=== PATIENT | female | born 1940 | race Caucasian/White ===

== ENCOUNTER 2019-03-16 01:28 | Inpatient (IN) | payer OTHER, MEDICAID ==
[~2019-03-16] VITALS: Ht 152.4 cm; Wt 88.5 kg
[2019-03-16] VITALS (8 sets, daily range): BP systolic 103–215; BP diastolic 40–86
--- NOTE | 2019-03-16 01:28 | NUR ---
PT BIBA ALS FROM HOME C/O SOB. PT PRESENTS WITH DEEP, LABORED BREATHING. ACCESSORY MUSCLE USE. PT PLACED ON BIPAP EN ROUTE. PT POSITIONED IN FOWLERS POSITION. O2 SAT 100 ON 50% O2 ON BIPAP. PT CALM AND PLEASANT. WHEN REMOVED FROM BIPAP PT PRESENTS WITH LABORED BREATHING. PT REPLACED ON BIPAP BY RESPIRATORY. VSS. MEDHX: DM, ASTHMA, COPD, CHF ALLERGIES: PENICILLIN, IODINE, SHELLFISH
--- NOTE | 2019-03-16 01:28 | NUR ---
DR CONLEY AT BEDSIDE EXAMINING PT
--- NOTE | 2019-03-16 01:29 | NUR ---
PT PLACED ON THE MONITOR. VSS. WILL CONTINUE TO MONITOR.
[2019-03-16] MEDS ORDERED: ALBUTEROL SULFATE/IPRATROPIU 3 ML SOL IH ONE (01:35)
[2019-03-16] MEDS ORDERED: methylPREDNISolone SS 125 MG in WATER STERILE 2 ML IV ONE (01:35)
[2019-03-16] MEDS ORDERED: WATER STERILE 10 ML MC ONE (01:40)
[2019-03-16] MEDS ORDERED: methylPREDNISolone SS 125 MG/2 ML VIAL ONE (01:40)
[2019-03-16 01:45] LABS: BASOPHILS # (AUTO) 0.1 K/uL (0.00-0.22); BASOPHILS % (AUTO) 0.8 % (0.0-2.0); EOSINOPHILS # (AUTO) 0.3 K/uL (0-0.4); EOSINOPHILS % (AUTO) 2.8 % (0.0-4.0); HEMATOCRIT 35.5 % (36-48); HEMOGLOBIN 11.2 g/dL (12.0-16.0); LYMPHOCYTES # (AUTO) 1.5 K/uL (2.5-16.5); LYMPHOCYTES % (AUTO) 16.1 % (20.5-51.1); MEAN CORPUSCULAR HEMOGLOBIN 28 pg (27-31); MEAN CORPUSCULAR HGB CONC 32 g/dL (33-37); MEAN CORPUSCULAR VOLUME 88.5 fL (80-94); MONOCYTES # (AUTO) 0.4 K/uL (0.8-1.0); MONOCYTES % (AUTO) 4.1 % (1.7-9.3); NEUTROPHILS # (AUTO) 7.1 K/uL (1.8-7.7); NEUTROPHILS % (AUTO) 76.2 % (42.2-75.2); PLATELET COUNT (AUTO) 256 K/uL (140-450); RED BLOOD CELL COUNT(AUTO) 4.01 MIL/uL (4.20-5.40); WHITE BLOOD COUNT (AUTO) 9.3 K/uL (4.8-10.8)
--- NOTE | 2019-03-16 01:47 | NUR ---
EKG PERFORMED AT BEDSIDE
--- NOTE | 2019-03-16 01:52 | NUR ---
XRAY AT PT BEDSIDE
--- NOTE | 2019-03-16 01:56 | NUR ---
PT PLACED ON BEDPAN AT THIS TIME.
--- NOTE | 2019-03-16 02:01 | NUR ---
URINE SPECIMEN COLLECTED FROM PT.
[2019-03-16 02:03] LABS: ALBUMIN 3.4 g/dL (3.4-5.0); ANION GAP 14.5 (8-16); ASPARTATE AMINOTRANSFERASE 17 U/L (15-37); CARBON DIOXIDE 24.8 mmol/L (21-32); CHLORIDE 110 mmol/L (98-107); CREATININE 1.5 mg/dL (0.6-1.3); GLUCOSE 221 mg/dL (74-106); POTASSIUM 4.3 mmol/L (3.5-5.1); SODIUM SERUM 145 mmol/L (136-145); TOTAL BILIRUBIN 0.3 mg/dL (0.0-1.0); UREA NITROGEN, BLOOD 36 mg/dL (7-18)
[2019-03-16] MEDS ORDERED: MORPHINE SULFATE 2 MG/ML SYR IVP ONE (02:15)
[2019-03-16] MEDS ORDERED: NITROGLYCERIN 0.4 MG TAB SL ONE (02:15)
[2019-03-16] MEDS ORDERED: FUROSEMIDE 40 MG/4 ML VIAL IVP SCH (02:50)
[2019-03-16] MEDS ORDERED: LORazepam 2 MG/ML VIAL IVP ONE (02:50)
--- NOTE | 2019-03-16 02:56 | NUR ---
16 AMHARIC MAN CATHETER PLACED. PT TOLERATED PROCEDURE WELL.
[2019-03-16 02:57] LABS: APPEARANCE,URINE CLEAR (CLEAR); BILIRUBIN,URINE NEGATIVE (NEGATIVE); BLOOD, URINE TRACE-I (NEGATIVE); COLOR,URINE YELLOW (YELLOW); LEUKOCYTE ESTERASE ,URINE NEGATIVE (NEGATIVE); NITRITE, URINE NEGATIVE (NEGATIVE); UGLUCOSE 2+ (NEGATIVE)
--- NOTE | 2019-03-16 03:09 | NUR ---
PT DENIES CHEST PAIN AT THIS TIME. PT REMAINS ON BIPAP 50% O2. VSS. WILL CONTINUE TO MONITOR.
[2019-03-16] MEDS ORDERED: LINA5TAB PO (03:37)
[2019-03-16] MEDS ORDERED: CLOP75TA55 PO (03:38)
[2019-03-16] MEDS ORDERED: METO50TE2 PO (03:39)
[2019-03-16] MEDS ORDERED: LYR75 PO (03:41)
[2019-03-16] MEDS ORDERED: PANT40EC PO (03:41)
[2019-03-16] MEDS ORDERED: HYDR100T79 PO (03:42)
[2019-03-16] MEDS ORDERED: ATOR40TA PO (03:43)
[2019-03-16] MEDS ORDERED: CHOL100013 PO (03:44)
[2019-03-16] MEDS ORDERED: NIFE60TE5 PO (03:45)
--- NOTE | 2019-03-16 03:46 | NUR ---
PT RESTING IN BED, BED POSITIONED IN FOWLERS POSITION FOR COMFORT, PT REMAINS ON BIPAP. O2SAT 100%. VSS. WILL CONTINUE TO MONITOR.
[2019-03-16 04:14] LABS: WBC,URINE 0-5 /HPF (0-5)
--- NOTE | 2019-03-16 04:14 | NUR ---
PTS SON AND DAUGHTER LEFT PHONE NUMBER, WOULD LIKE CALL WHEN PT GETS ADMITTED. ALMITA (SON): PA (DAUGHTER):
--- NOTE | 2019-03-16 05:15 | NUR ---
PT ARRIVED IN THE UNIT VIA GURNEY FROM ER ACCOMPANIED BY EMT AND RN. PT AWAKE AND ALERT. ABLE TO MAKE NEEDS KNOWN. DENIES PAIN. PERRL. PT ABLE TO ANSWER QUESTIONS. LUNG SOUNDS CLEAR. RESPIRATIONS EVEN AND UNLABORED. CHEST RISE SYMMETRIC. PT ON BIPAP. OXYGEN SATURATION WNL. S1+S2 HEARD. PULSES ARE PALPABLE IN ALL EXTREMITIES. ABDOMEN ROUND, SOFT AND NONDISTENDED. MAN CATHETER IN PLACE. CURRENTLY NO URINE OUTPUT D/T MAN CATHETER WAS JUST CHANGED PRIOR TO COMING IN THE UNIT. PT HAS PERIPHERAL IV ACCESS ON LEFT AC 20G. SKIN INTACT. SKIN IS WARM AND DRY. MRSA SPECIMEN COLLECTED. HOB AT 30 DEGREES. ALL SAFETY PRECAUTIONS ARE IN PLACE. WILL CONTINUE TO MONITOR PT.
--- NOTE | 2019-03-16 05:19 | NUR ---
Patient will be admitted to care of DR SZYMANSKI. Admited to ICU. Will go to room 5. Belongings list completed. Report to JACQUELINE BOJORQUEZ.
--- NOTE | 2019-03-16 05:30 | NUR ---
PT HAS CELLPHONE WITH BLACK AND PURPLE CASE AND WIRE TWISTING MACHINE OPERATOR AT BEDSIDE. NOTED WITH A KNOWLES COLORED WATCH AND A WOODEN BRACELET. PT WANTED HER BELONGINGS AT BEDSIDE.
--- NOTE | 2019-03-16 07:30 | NUR ---
RECEIVED BEDSIDE REPORT FROM PRE K SPECIAL EDUCATION TEACHER RN. AFEBRILE. DENIES PAIN. PT IS AAOX4. ABLE TO MAKE NEEDS KNOWN. NORMAL SINUS RHYTHM ON MONITOR. S1 S2 HEARD. PULSES PALPABLE TO ALL EXTREMITIES. NO EDEMA NOTED. PT IS ON BIPAP 12/6, FIO2 50%, BREATHING EVEN AND UNLABORED. LUNGS SOUND CLEAR BILATERALLY. PERIPHERAL IV G20 TO LEFT AC PATENT, INTACT W/ GOOD BLOOD RETURN, SALINE LOCKED. ABDOMEN ROUND, SOFT, NONTENDER W/ ACTIVE BOWEL SOUNDS. SKIN IS INTACT, DRY AND WARM TO TOUCH. MAN CATH IN PLACE DRAINING CLEAR YELLOW URINE TO GRAVITY. HOB 30 DEGREES, BED IN LOWEST POSITION LOCKED. CALL LIGHT WITHIN REACH. NO SIGNS OF DISTRESS NOTED. WILL CONTINUE TO MONITOR.
[2019-03-16 08:15] LABS: BARBITURATE, URINE NEG. ng/ml (NEG <=200); BENZODIAZEPINE, URINE NEG. ng/mL (NEG <=200); CANNABINOID, URINE NEG. ng/mL (NEG <=50); COCAINE, URINE NEG. ng/mL (NEG <=300); OPIATE, URINE NEG. ng/mL (NEG <=2000); PHENCYCLIDINE SCREEN,URINE NEG. ng/mL (NEG <=25)
--- NOTE | 2019-03-16 08:20 | NUR ---
SPOKE WITH DR. SZYMANSKI, MADE AWARE THAT PT IS HIS NEW ADMIT FROM ER. ORDERS RECEIVED. PER DR. SZYMANSKI, WILL RECONCILE THE REST OF MEDS WHEN HE COMES AND SEES PT.
--- NOTE | 2019-03-16 09:13 | NUR ---
PT SEEN AND EXAMINED BY DR. SZYMANSKI. WILL FOLLOW UP ON ORDERS.
--- NOTE | 2019-03-16 09:15 | NUR ---
PER DR. NICK SZYMANSKI OK TO REMOVE BIPAP TO MASK KEEP SATURATION GREATER THAN 90%
[2019-03-16] MEDS: FUROSEMIDE 40 MG/4 ML VIAL IVP SCH ×2 (09:32→20:52)
--- NOTE | 2019-03-16 09:51 | NUR ---
INFORMED POLYSOMNOGRAPHIC TECH THAT PT IS TELEMETRY STATUS NOW.
--- NOTE | 2019-03-16 10:05 | NUR ---
PATIENT HAS BEEN SCREENED AND CATEGORIZED MODERATE NUTRITION RISK. PATIENT WILL BE SEEN WITHIN 3-5 DAYS OF ADMISSION. 03/18/19-03/20/[address]
--- NOTE | 2019-03-16 10:18 | NUR ---
PT SEEN AND EXAMINED BY DR. PONCE. WILL FOLLOW UP ON ORDERS.
--- NOTE | 2019-03-16 11:20 | NUR ---
RECEIVED REPORT FROM ICU NURSE TO 121B, VIA BED, PATIENT IN STABLE CONDITION, VITAL SIGNS STABLE. PATIENT ON ROOM AIR, ON HER CELL PHONE. WILL CONTINUE TO MONITOR.
--- NOTE | 2019-03-16 11:20 | NUR ---
PT TRANSFERRED TO [facility] 121B. PT IS IN STABLE CONDITION.
--- NOTE | 2019-03-16 11:21 | NUR ---
REPORT GIVEN TO JACQUELINE DORADO.
[2019-03-16] MEDS: BLOOD GLUCOSE MONITORING 1 DEV DEV FS SCH ×3 (11:30→20:51)
[2019-03-16] MEDS: ALBUTEROL 0.083% 2.5 MG/3 ML NEBU INH SCH ×4 (11:46→22:58)
[2019-03-16] MEDS: IPRATROPIUM 0.02% 0.5 MG/2.5 ML NEBU INH SCH ×4 (11:46→22:58)
[2019-03-16] MEDS: INSULIN LISPRO SLIDING SCALE 100 UNITS/ML VIAL SUBQ PRN ×3 (12:31→20:50)
--- NOTE | 2019-03-16 14:20 | NUR ---
PER DR SZYMANSKI TO PUT ORDER FOR MORPHINE 2MG IVP AND ATIVAN 0.5MG PRN FOR ANXIETY, ORDERED PUT INTO SYSTEM. PER PATIENT DOES NOT LIKE MORPHINE STATES IT MAKES HER "GO CRAZY" PLUS HAVE DELUSIONS, MORPHINE WAS DC'D AND ADDED TO ALLERGY: ADVERSE REACTION. PATIENT STATES DECREASE OF CHEST PRESSURE WITH REPOSITIONING AND O2. WILL CONTINUE TO MONITOR, ATIVAN PENDING PHARMACY VERIFICATION.
--- NOTE | 2019-03-16 16:15 | NUR ---
AT THE BEDSIDE WITH PATIENT C/O CHEST PRESSURE, PATIENT HAS HX: ASTHMA, COPD, DM2, CHF, BMP: 573 PATIENT WAS ASSISTED IN A HIGH FOWLERS POSITION, 2L O2 VIA NC GIVEN. COACHED PATIENT THROUGH DEEP BREATHING, DR SZYMANSKI PAGED FOR PAIN MEDICATIONS.
[2019-03-16] MEDS ORDERED: MORPHINE SULFATE 2 MG/ML SYR IVP PRN (16:30)
--- NOTE | 2019-03-16 16:58 | NUR ---
PT ASKED ME TO CONTACT HER PCP (DR. REARDON) OFFICE TEL# [phone] TO INFORM THEM THAT SHE IS BEING ADMITTED HERE IN [facility]. THE [facility] IS NOW CLOSED, VOICEMAIL MESSAGE LEFT. PT NOTIFIED. VERBALIZED UNDERSTANDING.
--- NOTE | 2019-03-16 17:30 | NUR ---
PATIENT IN BED, WATCHING TV WITH DINNER AT THE BEDSIDE,. PATIENT TALKING ON PHONE WITH SON. NO RESP DISTRESS NOTED AT THIS TIME. WILL CONTINUE TO MONITOR.
[2019-03-16] MEDS: LORazepam 2 MG/ML VIAL IVP PRN ×2 (17:37→22:30)
--- NOTE | 2019-03-16 18:40 | NUR ---
PATIENT SITTING UP IN BED, WATCHING TV, NO RESP DISTRESS NOTED. WILL CONTINUE TO MONITOR
--- NOTE | 2019-03-16 19:09 | NUR ---
ENDORSED CARE TO POSTAL INSPECTOR NURSE, BEDSIDE REPORT GIVEN USING SBAR REPORT PATIENT IN STABLE CONDITION.
--- NOTE | 2019-03-16 19:10 | NUR ---
ENDORSED CARE TO DIAGNOSTIC IMAGING MANAGER NURSE, BEDSIDE REPORT GIVEN USING SBAR REPORT PATIENT IN STABLE CONDITION.
--- NOTE | 2019-03-16 19:15 | NUR ---
RECEIVED BEDSIDE REPORT FROM AVE RN DAYSHIFT NURSE AT BEDSIDE FOR CONTINUITY OF CARE, PT INSTABLE CONDITION.
--- NOTE | 2019-03-16 20:00 | NUR ---
PT IN BED SHE IS AOX4 WITH IV SITE ON LEFT F/A 22G INTACT AND SALINE LOCKED. PT ALSO HAS N/C RUNNING AT 2 LITERS. V/S FOLLOWS: T 98.2 P 85 R 18 B/P 165/66 02 98% WITH 2 LITERS. PT LUNG SOUNDS DIMINISHED AND BOWEL SOUNDS HYPOACTIVE. ALL FALLS PROTOCOL IN PLACE AND FAMILY AT BEDSIDE.
--- NOTE | 2019-03-16 20:08 | NUR ---
RECEIVED PT ON 2L NC WITH SP02 95%. BREATH SOUNDS WERE COARSE. PT IN NO RESPIRATORY DISTRESS. TX GIVEN ORDERED. WILL CONTINUE TO MONITOR PT
[2019-03-16] MEDS: PREGABALIN 25 MG CAP PO SCH (20:54)
--- NOTE | 2019-03-16 21:00 | NUR ---
PT GIVEN ORDERED LASIX IV 40MG AND LYRICA 75MG. EDUCATION REGARDING MEDICATION PROVIDED AT BEDSIDE. WILL MONITOR BP DUE TO HTN AND PT GIVEN IVP LASIX. PT HAS MAN CATHETER IN PLACE AND DRAINING LIGHT SEAN URINE. PT HAS NO C/O OF PAIN OR DISTRESS ALL REQUESTED NEEDS ATTENDED AND CALL ALFONSO IN REACH.
--- NOTE | 2019-03-16 21:30 | NUR ---
PT FAMILY BROUGHT IN [facility]. IT WAS ADDED TO BELONGINGS LIST. PT FAMILY ALSO REQUEST THAT PT DO NOT RECEIVE HEAVY NARCOTIC DUE TO PT REACTION. FAMILY REQUEST PT TO RECEIVE TRAMADOL 50MG Q6PO/PRN WHICH IS WHAT SHE TAKES AT HOME. CALLED FOR THE ORDER.
--- NOTE | 2019-03-16 22:15 | NUR ---
SPOKE WITH MD DIETZ, WHO APPROVED THE PRN TRAMADOL ORDER REQUESTED BY FAMILY. RETAKE OF PT B/P IS 146/46. ALL FALLS PRECAUTIONS IN PLACE AND CALL ALFONSO IN REACH.
--- NOTE | 2019-03-16 23:00 | NUR ---
PT C/O ANXIETY AND WAS GIVEN PRN ATIVAN ORDERED. ALL FALLS PRECAUTIONS IN PLACE AND CALL ALFONSO IN REACH.
[2019-03-17] VITALS: BP 144/62
--- NOTE | 2019-03-17 00:30 | NUR ---
PT WAS TURNED AND REPOSITIONED IN BED. V/S FOLLOWS: T 97.4 P 82 R 18 B/P 144/62 02 98% ON 2 LITERS VIA N/C. ALL FALLS PRECAUTIONS IN PLACE AND CALL ALFONSO IN REACH.
[2019-03-17] MEDS: ALBUTEROL SULFATE/IPRATROPIU 3 ML SOL IH SCH ×6 (03:19→22:13)
--- NOTE | 2019-03-17 03:30 | NUR ---
PT RECEIVED NEB TREATMENT AT BEDSIDE, NO S/S OF PAIN OR DISTRESS NOTED. MAN CATHETER IN PLACE AND DRAINING YELLOW URINE. N/C IN PLACE AND PT PUT ON 2 LITERS SUPPLEMENTAL O2. ALL FALLS PROTOCOL IN PLACE.
[2019-03-17 04:00] VITALS: BP 151/67
--- NOTE | 2019-03-17 05:21 | NUR ---
LABS DRAWN AT BEDSIDE.
[2019-03-17] MEDS: BLOOD GLUCOSE MONITORING 1 DEV DEV FS SCH ×4 (06:11→21:00)
[2019-03-17] MEDS ORDERED: PANTOPRAZOLE 40 MG TABEC PO ONE (06:21)
[2019-03-17] MEDS: INSULIN LISPRO SLIDING SCALE 100 UNITS/ML VIAL SUBQ PRN ×4 (06:23→22:54)
[2019-03-17] MEDS: PANTOPRAZOLE 40 MG TABEC PO SCH (06:27)
--- NOTE | 2019-03-17 06:30 | NUR ---
PT IN BED AWAKE AND ALERT WITH 2 LITERS VIA N/C, SHE HAS NO C/O VOICED AT THIS TIME. PT FINGERSTICK IS 161, PT GIVEN 2 UNITS OF HUMALOG COVERAGE. PT ALSO GIVEN ORDERED PROTONIX. PT SITTING UP IN BED, MD DIETZ HAD A QUICK VISIT AT BEDSIDE. PT HAS NO S/S OF PAIN OR DISTRESS NOTED. PT IN STABLE CONDITION, WILL ENDORSE CARE AT BEDSIDE TO AM SHIFT. ALL FALLS PRECAUTIONS IN PLACE.
[2019-03-17 06:57] LABS: BASOPHILS # (AUTO) 0.1 K/uL (0.00-0.22); BASOPHILS % (AUTO) 0.9 % (0.0-2.0); EOSINOPHILS % (AUTO) 0.6 % (0.0-4.0); HEMATOCRIT 29.7 % (36-48); HEMOGLOBIN 9.4 g/dL (12.0-16.0); LYMPHOCYTES # (AUTO) 1.9 K/uL (2.5-16.5); LYMPHOCYTES % (AUTO) 23.2 % (20.5-51.1); MEAN CORPUSCULAR HEMOGLOBIN 28 pg (27-31); MEAN CORPUSCULAR HGB CONC 32 g/dL (33-37); MEAN CORPUSCULAR VOLUME 88.8 fL (80-94); MONOCYTES # (AUTO) 0.7 K/uL (0.8-1.0); MONOCYTES % (AUTO) 8.2 % (1.7-9.3); NEUTROPHILS # (AUTO) 5.6 K/uL (1.8-7.7); NEUTROPHILS % (AUTO) 67.1 % (42.2-75.2); PLATELET COUNT (AUTO) 209 K/uL (140-450); RED BLOOD CELL COUNT(AUTO) 3.35 MIL/uL (4.20-5.40); RED CELL DISTRIBUTION WIDTH 16.2 % (11.6-13.7); WHITE BLOOD COUNT (AUTO) 8.3 K/uL (4.8-10.8)
--- NOTE | 2019-03-17 07:28 | NUR ---
CARE ENDORSED TO IMELDA RN DAYSHIFT NURSE AT BEDSIDE FOR CONTINUITY OF CARE, PT IN STABLE CONDITION.
--- NOTE | 2019-03-17 07:29 | NUR ---
RECEIVED BEDSIDE REPORT FROM SENIOR ELECTRONICS TECHNICIAN NURSE. PATIENT IS AWAKE, ALERT AND ORIENTEDX4. NO SIGNS OF DISTRESS ON 2L NC. SKIN IS INTACT. R FA 22G SL. CLEAN, DRY AND INTACT. MAN CATH. PATIENT IS CONTINENT. AMBULATE W ASSIST. FALL RISK PROTOCOL IN PLACE. ABLE TO MAKE NEEDS KNOWN. BED IN LOW POSITION. CALL LIGHT WITHIN REACH
[2019-03-17 07:31] LABS: ANION GAP 14.6 (8-16); ASPARTATE AMINOTRANSFERASE 10 U/L (15-37); CARBON DIOXIDE 25.9 mmol/L (21-32); CHLORIDE 109 mmol/L (98-107); CREATININE 2.2 mg/dL (0.6-1.3); GLUCOSE 153 mg/dL (74-106); POTASSIUM 4.5 mmol/L (3.5-5.1); SODIUM SERUM 145 mmol/L (136-145); TOTAL BILIRUBIN 0.3 mg/dL (0.0-1.0); UREA NITROGEN, BLOOD 57 mg/dL (7-18)
[2019-03-17 08:00] VITALS: BP 158/56
[2019-03-17] MEDS: ATORVASTATIN 20 MG TAB PO SCH (09:17)
[2019-03-17] MEDS: PREGABALIN 25 MG CAP PO SCH ×2 (09:17→22:48)
[2019-03-17] MEDS: NIFEdipine 60 MG TABER PO SCH (09:18)
[2019-03-17] MEDS: METOPROLOL SUCCINATE 50 MG TABER PO SCH (09:18)
[2019-03-17] MEDS: CLOPIDOGREL 75 MG TAB PO SCH (09:18)
[2019-03-17] MEDS: FUROSEMIDE 40 MG/4 ML VIAL IVP SCH (09:20)
--- NOTE | 2019-03-17 09:24 | NUR ---
ADMINISTERED MEDS. EDUCATED ON SIDE EFFECTS. PATIENT TOLERATED WELL. NO SIGNS OF DISTRESS. WILL CONTINUE TO MONITOR THE PATIENT.
--- NOTE | 2019-03-17 10:02 | NUR ---
STAT ABG COMPLETED PRESSURE APPLIED AT PUNCTURE SITE NO HEMATOMA
[2019-03-17] MEDS: LORazepam 2 MG/ML VIAL IVP PRN ×2 (10:10→23:19)
[2019-03-17] MEDS: NITROGLYCERIN 0.4 MG TAB SL PRN (10:10)
--- NOTE | 2019-03-17 10:10 | NUR ---
EKG DONE, TROPONIN LAB DONE. ABG LABS DONE. ADMINISTERED NITRO FOR PRN CHEST PAIN. VITALS BEFORE ARE FOLLOWS B/P 190/83 HR 109. WILL RECHECK VITALS AND CHEST PAIN ASSESSMENT.
--- NOTE | 2019-03-17 10:14 | NUR ---
CALLED MIGUEL/JACQUELINE [id number] REVIEWED ABG SAMPLE REPORT
--- NOTE | 2019-03-17 10:15 | NUR ---
PATIENT SLEEPING. NO DISTRESS AT THIS TIME. B/P 124/73 HR 108. PATIENT IS EASILY AROUSABLE. WILL CONTINUE TO MONITOR THE PATIENT.
--- NOTE | 2019-03-17 11:39 | NUR ---
DR WARE IN TO SEE THE PATIENT. PATIENT IN NO DISTRESS
[2019-03-17 12:00] VITALS: BP 128/67
--- NOTE | 2019-03-17 12:30 | NUR ---
PATIENT IS AWAKE, NO SIGNS OF DISTRESS. EATING AT THIS TIME. ADMINISTERED 6 UNITS HUMALOG. EDUCATED ON MED. PATIENT TOLERATED WELL. WILL CONTINUE TO MONITOR
--- NOTE | 2019-03-17 14:46 | NUR ---
PATIENT IS SLEEPING. NO SIGNS OF DISTRESS. WILL CONTINUE TO MONITOR THE PATIENT.
[2019-03-17 16:00] VITALS: BP 126/65
--- NOTE | 2019-03-17 16:00 | NUR ---
PATIENT IN NO DISTRESS. WILL CONTINUE TO MONITOR THE PATIENT
[2019-03-17] MEDS ORDERED: hePARIN / DEXT 5% PREMIX 250 ML IV SCH (16:55)
[2019-03-17] MEDS ORDERED: HEPARIN PER PHARMACY MC PRN ×2 (16:55)
--- NOTE | 2019-03-17 17:40 | NUR ---
ADMINISTERED JOHANNA ASPIRIN. EDUCATED ON MED. PATIENT SAID SHE HAS ULCERS AND THAT IS WHY SHE DOESNT TAKE ASPIRIN. I WILL ENDORSE TO CORPORATE PHYSICAL SECURITY SUPERVISOR NURSE TO ENDORSE TO DR WARE IN THE MORNING IF SHE SHOULD CONTINUE ASPIRIN DAILY OR STOP.
[2019-03-17] MEDS ORDERED: ASPIRIN 325 MG TAB PO SCH (18:00)
[2019-03-17] MEDS: hePARIN / DEXT 5% PREMIX 250 ML IV SCH (19:04)
--- NOTE | 2019-03-17 19:15 | NUR ---
RECEIVED REPORT FROM IMELDA RN DAYSHIFT NURSE AT BEDSIDE FOR CONTINUITY OF CARE, PT IN STABLE CONDITION.
--- NOTE | 2019-03-17 19:35 | NUR ---
gave bedside report to overnight cashier nurse. patient endorsed in stable condition. told overnight cashier nurse to endorse to AM nurse if patients aspirin should continue or stop d/t gi ulcers
--- NOTE | 2019-03-17 19:51 | NUR ---
RECEIVED PT ON 2L NC WITH SP02 97% AND COARSE BREATH SOUNDS. PT IN NO RESPIRATORY DISTRESS AT THIS TIME. FAMILY AT BEDSIDE. TX GIVEN ORDERED WITH NO ADVERSE REACTION. WILL CONTINUE TO MONITOR PT.
[2019-03-17 20:00] VITALS: BP 127/48
--- NOTE | 2019-03-17 20:00 | NUR ---
PT IN BED NO S/S OF PAIN OR DISTRESS NOTED. HEPARIN GTT RUNNING ORDERED, NO S/S OF BLEEDING OR OTHER ADVERSE EFFECTS. IV SITE INTACT AND ASYMPTOMATIC. PT OLD IV SITE REMOVED. MAN CATHETER IN PLACE AND DRAINING SEAN URINE. N/C IN PLACE AND RUNNING AT 2L. V/S FOLLOWS: T 97.6 P 74 R 18 B/P 127/48 02 97% ON ROOM AIR.ALL FALLS PRECAUTIONS IN PLACE AND CALL ALFONSO IN REACH.
--- NOTE | 2019-03-17 21:00 | NUR ---
DAVID CUBAI AT BEDSIDE W PT AND UPDATING FAMILY VIA CELL PHONE.
--- NOTE | 2019-03-17 21:30 | NUR ---
PT GIVEN ALL SCHEDULED MEDS OF LYRICA AND CIPRO, EDUCATION REGARDING MEDICATION PROVIDED AT BEDSIDE INCLUDING COMMON SIDE EFFECTS. EDUCATION PROVIDED REGARDING DX AND CURRENT TREATMENTS AT BEDSIDE. ALL REQUESTED NEEDS ATTENDED. PT DECLINED TO BE TURNED AT THIS TIME. FINGERSTICK IS 213, PT GIVEN 4 UNITS OF HUMALOG COVERAGE. PER S/S.
--- NOTE | 2019-03-17 22:00 | NUR ---
MOVED PT TO ROOM 122, DUE TO 02 LEAK IN ROOM.
--- NOTE | 2019-03-17 22:27 | NUR ---
PT REFUSED CPAP
[2019-03-17] MEDS: CIPROFLOXACIN 250 MG TAB PO SCH (22:47)
--- NOTE | 2019-03-17 23:20 | NUR ---
PT C/O THAT MAN CATHETER IS HURTING HER WHEN SHE REPOSITIONS HERSELF AND IS REQUESTING MAN CATH BE CHANGED. 600MLS OF BLOODY URINE DRAINED FROM OLD MAN CATH. NEW MAN CATH PLACED 16 TAJIK X1 ATTEMPT PT TOLERATED PROCEDURE WELL. URINE DRAINED A LIGHT YELLOW. PT GIVEN ATIVAN FOR FEELINGS OF ANXIETY AND AGITATION. IV SITE INTACT HEPARIN GTT CONTINUES ORDERED AND ALL FALLS PRECAUTIONS IN PLACE.
[2019-03-18] VITALS: BP 135/47
--- NOTE | 2019-03-18 | NUR ---
PT IN BED RESTING WITH EYES CLOSED BUT AROUSABLE TO LIGHT TOUCH. ALL FALLS PRECAUTIONS IN PLACE. IV SITE ON LEFT F/A INTACT AND RUNNING HEPARIN ORDERED. V/S FOLLOWS: T 97.0 P 70 R 18 B/P 135/47 02 98% ON 2 LITERS VIA N/C. PT TURNED AND REPOSITIONED IN BED ALL REQUESTED NEEDS ATTENDED BY STAFF.
--- NOTE | 2019-03-18 01:03 | NUR ---
RECEIVED A CRITICAL LAB OF TROPONIN 0.126 FROM [facility] AT THE LAB, PAGED HIGHWAY ENGINEERING TEACHER MD DR. WATERMAN TO UPDATE HIM AND RECEIVE ANY NEW ORDERS.
--- NOTE | 2019-03-18 01:09 | NUR ---
LAB AT BEDSIDE TO DRAW PTT LEVEL FOR HEPARIN GTT.
--- NOTE | 2019-03-18 01:31 | NUR ---
RECEIVED CALL BACK FORM JEWEL BEARING GRINDER MD WATERMAN, HE WAS UPDATED ON PT LATEST TROPONIN LEVEL OF 0.126. NO NEW ORDERS NOTED.
--- NOTE | 2019-03-18 01:45 | NUR ---
LAB CALLED WITH CRITICAL VALUE OF PTT 55.2. LEVEL IS IN THERAPEUTIC RANGE FOR HEPARIN GTT. NO CHANGE IN ORDERS, NEXT PTT LAB DRAW WAS ORDERED AT 0705AM.
[2019-03-18] MEDS: hePARIN / DEXT 5% PREMIX 250 ML IV SCH ×4 (01:56→22:56)
[2019-03-18] MEDS: ALBUTEROL SULFATE/IPRATROPIU 3 ML SOL IH SCH ×6 (03:25→23:00)
[2019-03-18 04:00] VITALS: BP 137/56
--- NOTE | 2019-03-18 04:00 | NUR ---
PT WAS UP TO COMMODE WITH TRANSFER, SHE HAD A SMALL BM AND WAS ASSISTED BACK TO BED. V/S FOLLOWS T 97.0 P 68 R 18 B/P 137/56 02 98% WITH 2 LITERS VIA N/C. PT DAUGHTER BRENNAN WAS UPDATED WITH PATENT PERMISSION. CONTACT # [phone]. ALL FALLS PRECAUTIONS IN PLACE.
--- NOTE | 2019-03-18 06:00 | NUR ---
PT FINGERSTICK IS 213 PT GIVEN 4 UNITS OF HUMALOG COVERAGE PER S/S. SYNTHROID PO GIVEN. NO S/S OF PAIN OR DISTRESS NOTED.
[2019-03-18] MEDS: PANTOPRAZOLE 40 MG TABEC PO SCH (06:36)
[2019-03-18] MEDS: BLOOD GLUCOSE MONITORING 1 DEV DEV FS SCH ×4 (06:40→20:33)
[2019-03-18] MEDS: INSULIN LISPRO SLIDING SCALE 100 UNITS/ML VIAL SUBQ PRN ×3 (06:42→20:37)
[2019-03-18 06:45] LABS: ANION GAP 13.1 (8-16); CARBON DIOXIDE 26.3 mmol/L (21-32); CHLORIDE 107 mmol/L (98-107); CREATININE 2.3 mg/dL (0.6-1.3); GLUCOSE 232 mg/dL (74-106); POTASSIUM 4.4 mmol/L (3.5-5.1); SODIUM SERUM 142 mmol/L (136-145)
[2019-03-18 07:02] LABS: UREA NITROGEN, BLOOD 66 mg/dL (7-18)
--- NOTE | 2019-03-18 07:20 | NUR ---
CRITICAL VALUES FROM LAB RECEIVED BUN 66 AND CREATININE CLEARANCE 2.27. CRYOGENICS REPAIRER MIRELA CALLED, UPDATED NO NEW ORDERS NOTED. ENDORSED POC AT BEDSIDE TO ANDIE PHILLIPS DAYSHIFT NURSE FOR CONTINUITY OF CARE, PT IN STABLE CONDITION.
--- NOTE | 2019-03-18 07:20 | NUR ---
Received report from pm nurse More. Pt asleep in bed, arousable with auditory stimuli. Left forearm 22G IV intact & asymptomatic with ongoing heparin drip @ 750unit/h (7.5ml/h). Serna cath in place & draining reddish urine with small clots. Per pm nurse, clots were present after serna reinsertion during pm shift. Urine drainage bag changed for monitoring of hematuria. Pt shows no signs of distress. Call light within reach.
[2019-03-18 08:00] VITALS: BP 142/58
[2019-03-18] MEDS: ASPIRIN 81 MG TAB.CHEW PO SCH (08:30)
[2019-03-18] MEDS: PREGABALIN 25 MG CAP PO SCH ×2 (08:30→20:30)
[2019-03-18] MEDS: NIFEdipine 60 MG TABER PO SCH (08:31)
[2019-03-18] MEDS: CIPROFLOXACIN 250 MG TAB PO SCH ×2 (08:31→20:30)
[2019-03-18] MEDS: traMADol 50 MG TAB PO PRN ×3 (08:31→23:06)
[2019-03-18] MEDS: METOPROLOL SUCCINATE 50 MG TABER PO SCH (08:32)
[2019-03-18] MEDS: ATORVASTATIN 20 MG TAB PO SCH (08:32)
[2019-03-18] MEDS: CLOPIDOGREL 75 MG TAB PO SCH ×2 (08:32→08:45)
--- NOTE | 2019-03-18 08:45 | NUR ---
Plavix held d/t pt on heparin drip with ptt 79.9.
--- NOTE | 2019-03-18 10:30 | NUR ---
Son cath intact with reddish pelon urine in drainage bag, no clots noted. Pt denies any pain at this time. Dr Whitehead notified of hematuria, no new orders, states to f/u with olericulture teacher for cont heparin drip tx.
[2019-03-18 12:00] VITALS: BP 131/48
--- NOTE | 2019-03-18 12:15 | NUR ---
Noticed left forearm IV infiltrated, mild swelling with bruising. Heparin drip held, IV site discontinued, IV cannula intact. Started new IV access to right inner forearm 24G & resumed heparin drip @ 650ml/h. Pt akshat procedure well. Will cont to monitor. Addendum: 03/18/19 at 1828 by Tosha Alatorre RN Clarification of heparin drip rate: 650 unit/hr.
[2019-03-18 16:00] VITALS: BP_SYST 104; BP_SYST 111; BP_DIAS 41
--- NOTE | 2019-03-18 16:06 | NUR ---
Pt c/o 6/10 mid chest pain, non-radiating. Pt c/o tightness to chest. Pt also c/o anxiety. Tramadol administered. Unable to administer nitro tab & lorazepam d/t decreased BP. Encouraged pt to do breathing exercises, reassurance provided, TV turned on to redirect attention, repositioned for comfort. Right forearm IV intact & asymptomatic with ongoing heparin drip @ 750 unit/h. Pt's son Victoriano on speakerphone & updated of pt status per pt request. Will cont to monitor.
[2019-03-18] MEDS ORDERED: NITROGLYCERIN 2% 1 GM PKT TP ONE (16:56)
--- NOTE | 2019-03-18 17:00 | NUR ---
Dr. Carrasco came in to see pt, notified of hematuria & chest pain with decreased BP. Applied nitro-bid paste 1/2 inch to right chest per verbal order. Pt remains aaox4, cont to c/o anxiety. Reassurance provided by physician & staff. Will cont to monitor.
--- NOTE | 2019-03-18 17:30 | NUR ---
Per Dr. Carrasco, he will speak with Dr Whitehead re: recommendation for transfer to [facility] to check cardiac stent via angiogram.
--- NOTE | 2019-03-18 19:24 | NUR ---
RECEIVED BEDSIDE REPORT FROM DAY SHIFT NURSE. PATIENT IS AWAKE, ALERT, AND COOPERATIVE. RESPIRATION EVEN UNLABORED ON 2L NC O2. NO DISTRESS NOTED. SKIN IS WARM AND DRY. IV PATENT AND INTACT. HEPARIN DRIP RUNNING 750UNITS/HR. DENIES PAIN. PLAN OF CARE WAS DISCUSSED. ALL SAFETY MEASURES IN PLACE. BED IS AT LOW POSITION. CALL LIGHT WITHIN REACH AND VERBALIZES ITS USE. WILL CONTINUE TO MONITOR.
--- NOTE | 2019-03-18 19:59 | NUR ---
PATIENT REFUSED HHNTX. PATIENT AND FAMILY MEMBERS SAYS IT MAKES HER FEEL ANXIOUS. PATIENT WILL CALL IF SHE NEEDS A HHNTX
[2019-03-18 20:00] VITALS: BP 118/46
--- NOTE | 2019-03-18 20:01 | NUR ---
PATIENT REFUSES TO WEAR CPAP. PATIENT STATES IT MAKES HER FEEL CLAUSTROPHOBIC. PATIENT DOES NOT HAVE SOB. RR 14 HR 63 SATS 98% 2LNC AND BS ARE CLEAR
--- NOTE | 2019-03-18 20:02 | NUR ---
INITIAL ASSESSMENT DONE. VITALS WERE TAKEN. PATIENT ACCIDENTALLY PULLED HIS IV. NO ACTIVE BLEEDING SEEN. CANNULA TIP INTACT. INSERTED A NEW ONE TO THE LEFT FOREARM 22G. PATIENT IN STABLE CONDITION. WILL CONTINUE TO MONITOR. Addendum: 03/18/19 at 2004 by Vanessa Muller RN WRONG PATIENT
--- NOTE | 2019-03-18 20:07 | NUR ---
INITIAL ASSESSMENT DONE. NITRO-BID PASTE NOTED TO THE RIGHT UPPER CHEST. VITALS WERE TAKEN. MAN CATHETER DRAINING REDDISH SEAN URINE. NO CLOTS NOTED. PATIENT DENIES PAIN. LEFT ARM MILD SWELLING AND BRUISING NOTED. FAMILY AT BEDSIDE. WILL CONTINUE TO MONITOR.
--- NOTE | 2019-03-18 21:00 | NUR ---
ALL SCHEDULED MEDS WERE GIVEN PER ORDER. NO ASE NOTED. BLOOD SUGAR CHECKED. PATIENT BLOOD SUGAR 245. INSULIN GIVEN PER SLIDING SCALE ORDER. NO S/SX OF HYPO-HYPERGLYCEMIA. WILL CONTINUE TO MONITOR.
--- NOTE | 2019-03-18 21:39 | NUR ---
CHECKED PATIENT. PATIENT SLEEPING RESPIRATION EVEN UNLABORED ON 2L O2 NC. NO DISTRESS NOTED. WILL CONTINUE TO MONITOR.
--- NOTE | 2019-03-18 21:55 | NUR ---
PTT 96.7. PER PROTOCOL HOLD FOR 1 HOUR AND AFTER 1 HOUR REDUCE 200UNITS WHEN RESUME. WILL CONTINUE TO MONITOR.
--- NOTE | 2019-03-18 22:55 | NUR ---
RESUMED HEPARIN DRIP. HEPARIN DRIP RUNNING AT 5.50ML/HR. WILL CONTINUE TO MONITOR.
--- NOTE | 2019-03-18 23:07 | NUR ---
PATIENT COMPLAINED OF HEADACHE 5/10. PRN PAIN MEDICATION GIVEN PER ORDER. WILL CONTINUE TO MONITOR.
[2019-03-19] VITALS: BP 122/45
--- NOTE | 2019-03-19 | NUR ---
VITALS WERE TAKEN. PATIENT STILL COMPLAINS OF HEADACHE, BUT NO MORE CHEST PAIN. WILL PAGE GRIZZLYMAN
--- NOTE | 2019-03-19 00:12 | NUR ---
SPOKE WITH DR. BELL REGARDING PATIENT HEADACHE. DR. BELL ORDER TO REMOVED NITRO PATCH SINCE PATIENT IS NOT HAVING A CHEST PAIN. BLOOD PRESSURE 122/47. ALSO ORDERED TYLENOL 500MG Q6H PO PRN MILD PAIN. WILL CONTINUE TO MONITOR.
[2019-03-19] MEDS ORDERED: ACETAMINOPHEN EXTRA STRENGTH 500 MG TAB PO PRN (00:20)
--- NOTE | 2019-03-19 00:40 | NUR ---
PATIENT FELL ASLEEP. RESPIRATION EVEN UNLABORED ON 2L NC O2. NO DISTRESS NOTED. WILL CONTINUE TO MONITOR.
--- NOTE | 2019-03-19 02:21 | NUR ---
PATIENT WOKE UP FROM MILD HEADACHE. PRN TYLENOL GIVEN PER ORDER. WILL CONTINUE TO MONITOR.
[2019-03-19] MEDS: ALBUTEROL SULFATE/IPRATROPIU 3 ML SOL IH SCH ×6 (03:00→23:22)
[2019-03-19 04:00] VITALS: BP 140/49
--- NOTE | 2019-03-19 04:30 | NUR ---
VITALS WERE TAKEN PATIENT IN STABLE CONDITION. NO DISTRESS NOTED. WILL CONTINUE TO MONITOR.
--- NOTE | 2019-03-19 04:45 | NUR ---
PROVIDED MAN CATHETER CARE
[2019-03-19] MEDS: BLOOD GLUCOSE MONITORING 1 DEV DEV FS SCH ×4 (06:40→21:00)
[2019-03-19] MEDS: PANTOPRAZOLE 40 MG TABEC PO SCH (06:40)
[2019-03-19] MEDS: INSULIN LISPRO SLIDING SCALE 100 UNITS/ML VIAL SUBQ PRN ×4 (06:42→22:29)
[2019-03-19] MEDS: hePARIN / DEXT 5% PREMIX 250 ML IV SCH ×3 (06:45→16:29)
--- NOTE | 2019-03-19 06:46 | NUR ---
HEPARIN BAG DONE. HANG A NEW ONE. STILL RUNNING AT 5.50ML/HR. WILL CONTINUE TO MONITOR.
--- NOTE | 2019-03-19 07:10 | NUR ---
PTT 59.8. NO CHANGE IN HEPARIN DRIP. STILL RUNNING AT 5.50 ML/HR. NEXT PTT ORDER AT 1310. WILL CONTINUE TO MONITOR.
[2019-03-19 07:23] LABS: ANION GAP 11.5 (8-16); CARBON DIOXIDE 28.2 mmol/L (21-32); CHLORIDE 106 mmol/L (98-107); CREATININE 2.4 mg/dL (0.6-1.3); GLUCOSE 233 mg/dL (74-106); POTASSIUM 5.7 mmol/L (3.5-5.1); SODIUM SERUM 140 mmol/L (136-145)
--- NOTE | 2019-03-19 07:25 | NUR ---
RECEIVED BEDSIDE REPORT FROM GRAPPLE YARDER OPERATOR NURSE, PT IS AWAKE AND ALERT, ON 2L O2 NC, SKIN INTACT, IV SITE R FA 22 G, ON HEPARIN DRIP CURRENTLY AT 550 UNITS/HR. MAN CATHETER INSERTED. FALL PRECAUTIONS IN PLACE, CALL LIGHT IS WITHIN REACH. WILL CONTINUE TO MONITOR.
[2019-03-19 07:26] LABS: UREA NITROGEN, BLOOD 71 mg/dL (7-18)
--- NOTE | 2019-03-19 07:27 | NUR ---
ENDORSED PATIENT TO DAY SHIFT NURSE. PATIENT IN STABLE CONDITION.
[2019-03-19 07:38] LABS: BASOPHILS # (AUTO) 0.1 K/uL (0.00-0.22); EOSINOPHILS # (AUTO) 0.5 K/uL (0-0.4); EOSINOPHILS % (AUTO) 5.5 % (0.0-4.0); HEMATOCRIT 29.3 % (36-48); HEMOGLOBIN 9.3 g/dL (12.0-16.0); LYMPHOCYTES # (AUTO) 2.1 K/uL (2.5-16.5); LYMPHOCYTES % (AUTO) 22.1 % (20.5-51.1); MEAN CORPUSCULAR HEMOGLOBIN 28 pg (27-31); MEAN CORPUSCULAR HGB CONC 32 g/dL (33-37); MEAN CORPUSCULAR VOLUME 89.2 fL (80-94); MONOCYTES # (AUTO) 0.8 K/uL (0.8-1.0); MONOCYTES % (AUTO) 8.1 % (1.7-9.3); NEUTROPHILS # (AUTO) 6.1 K/uL (1.8-7.7); NEUTROPHILS % (AUTO) 63.3 % (42.2-75.2); PLATELET COUNT (AUTO) 204 K/uL (140-450); RED BLOOD CELL COUNT(AUTO) 3.28 MIL/uL (4.20-5.40); RED CELL DISTRIBUTION WIDTH 16.2 % (11.6-13.7); WHITE BLOOD COUNT (AUTO) 9.7 K/uL (4.8-10.8)
--- NOTE | 2019-03-19 07:40 | NUR ---
SENT A PAGE OUT TO DR العراقي TO REPORT BUN 71. DR العراقي IS HERE NOW AND IS AWARE
[2019-03-19 08:00] VITALS: BP 135/41
[2019-03-19] MEDS ORDERED: SODIUM ZIRCONIUM CYCLOSILICATE 10 GM POWD.PACK PO SCH (09:00)
--- NOTE | 2019-03-19 09:23 | NUR ---
PT HAD EPISODE OF EMESIS X 1, PT SAYS SHE FEELS NAUSEOUS. PAGED DR العراقي TO HAVE SOMETHING ORDERED FOR NAUSEA. AM MEDS NOT ADMINISTERED YET. AWAITING HIS CALL BACK.
[2019-03-19] MEDS ORDERED: ONDANSETRON 4 MG/2 ML VIAL IVP PRN (09:40)
[2019-03-19] MEDS: PREGABALIN 25 MG CAP PO SCH ×2 (10:07→22:23)
[2019-03-19] MEDS: NIFEdipine 60 MG TABER PO SCH (10:07)
[2019-03-19] MEDS: ASPIRIN 81 MG TAB.CHEW PO SCH (10:08)
[2019-03-19] MEDS: METOPROLOL SUCCINATE 50 MG TABER PO SCH (10:08)
[2019-03-19] MEDS: CLOPIDOGREL 75 MG TAB PO SCH (10:08)
[2019-03-19] MEDS: ATORVASTATIN 20 MG TAB PO SCH (10:09)
[2019-03-19] MEDS: CIPROFLOXACIN 250 MG TAB PO SCH ×2 (10:09→22:23)
--- NOTE | 2019-03-19 10:15 | NUR ---
AM MEDS ADMINISTERED
--- NOTE | 2019-03-19 10:24 | NUR ---
DC PLANNING 78 YRS OLD FEMALE PATIENT ADMITTED FROM HOME WITH A DX OF PULMONARY EDEMA . PT HAS A HX OF CHF, HTN, HYPERLIPIDEMIA. C-XRAY SHOWED CARDIOMEGALY WITH LEFT PLEURAL EFFUSION . CONTINUE BIPAP SUPPORT TITRATE TO HIGH FLOW BRONCHODILATORS RT PROTOCOL IV LASIX 40MG IVP . CARDIO CONSULT WITH AMEE HAMILTON AND LUG LOADER RECOMMENDED TRANSFER PT TO HIGHER LEVEL OF CARE FOR ANGIOGRAM FAXED TO [place] [facility] AND JERRICA BRODERICK TO FOLLOW Addendum: 03/19/19 at 1639 by Irene Thornton CM DC PLANNING CALLED [facility] SPOKE WITH JOSSELYN [phone] THE AUTHORIZATION IS NOT READY ,I PROVIDED THE FLOOR NUMBER AND CHARGE NURSE TO GIVE THE AUTHORIZATION WHEN AVAILABLE AND FLORINDA WILL ARRANGE [facility]. CALLED [facility] [phone] NOTIFIED TO CALL THE UNIT WHEN AVAILABLE Addendum: 03/20/19 at 1412 by Irene Thornton CM DC PLANNING [facility] ACCEPTED PT BUT PATIENT AND DAUGHTER IS REFUSING TO GO THERE BECAUSE STATED IT IS TOO FAR TO GO THERE. NOTIFIED JOSSELYN BRODERICK AT [facility] AND DR العراقي. I RECEIVED A CALL FROM ANGELICA FROM [facility] DEAF TEACHER DR HANSEN IS ACCEPTING PT IF SHE COMES BEFORE 4PM WILL DO THE PROCEDURE. ARRANGED TRANSPORT WITH [facility] DOMESTIC FREIGHT FORWARDER TIME 2PM .CALLED JOSSELYN [facility] [phone] NOTIFIED HER [facility] IS ACCEPTED PT PER JOSSELYN DEVLIN TO GO TO [facility] AUTH # [id number] AND [facility] AUTH #[id number]
--- NOTE | 2019-03-19 11:00 | NUR ---
P.T. NOTES PATIENT REFUSED TO GET UP AND PARTICIPATE WITH P.T. IN SPITE OF SEVERAL ENCOURAGEMENTS WERE GIVEN. STATES: "I DON'T FEEL LIKE GETTING UP TODAY!" SO HER REQUEST WAS RESPECTED. PLAN: WE'LL FOLLOW UP AGAIN IF SHE REMAINS IN THIS HOSPITAL.
[2019-03-19 12:00] VITALS: BP 140/60
--- NOTE | 2019-03-19 12:03 | NUR ---
RECEIVED A CALL FROM PT'S DAUGHTER ASKING ABOUT WHEN PT'S SON ALMITA WILL RECEIVE CALL FROM DR العراقي TO UPDATE HIM ON THE PT'S CONDITION. I SENT A PAGE OUT TO DR العراقي, AWAITING HIS CALL BACK. Addendum: 03/19/19 at 1214 by Africa Herrera RN DR العراقي CALLED BACK, SAID HE WILL CALL THE SON SOON HE CAN.
[2019-03-19] MEDS: NITROGLYCERIN 0.4 MG TAB SL PRN ×2 (12:31→12:38)
--- NOTE | 2019-03-19 12:32 | NUR ---
PT C/O CHEST PAIN AND SOB, VITALS CHECKED, STABLE. PRN NITROGLYCERIN SUBLINGUAL 0.4 MG ADMINISTERED. CONTINUING TO MONITOR.
--- NOTE | 2019-03-19 12:39 | NUR ---
SECOND DOSE OF SUBLINGUAL PRN NITROGLYCERIN 0.4 MG ADMINISTERED, PT IS STILL C/O CHEST PAIN. BP IS CURRENTLY 113/45. CONTINUING TO MONITOR.
--- NOTE | 2019-03-19 12:58 | NUR ---
PT'S CURRENT BP IS 110/47, PT SAYS SHE CAN BREATHE EASIER AND HER CHEST PAIN IS BETTER.
--- NOTE | 2019-03-19 13:07 | NUR ---
PT IS SLEEPING, NO S/S OF ACUTE DISTRESS OR SOB NOTED. BP IS 122/41, O2 98% ON 2L, HR 70.
--- NOTE | 2019-03-19 14:40 | NUR ---
CURRENT VS: BP 140/51, HR 69, O2 98%, TEMP 98.6, RR 17. PT IS RESTING COMFORTABLY, NO S/S OF DISTRESS.
[2019-03-19 16:00] VITALS: BP 144/51
--- NOTE | 2019-03-19 16:28 | NUR ---
Nib Assembler Assessment/Discharge Plan High Risk DC Screen Yes Name: Ramone Beyer Home Relationship: son Pre-Admission Living Arrangements: Lives with Other Other: Ramone Beyer and his Janki Prior ADL Needs Assistance Current Home Health Name/Tel: N/A Current DME/02 Name/Tel: fww, wheelchair, no home O2 Current Hospice Name/Tel: N/A Current Dialysis Name/Tel: N/A Healthcare Decision Maker: Patient Advance Directive No Tentative Discharge Plan Summary: Patient is a 78 year old female, admitted for pulmonary edema. I met with patient at bedside. Patient alert and oriented x4. Patient lives at home with her son Ramone Beyer and his Janki. She does not know her home address. She does not recall name of her pcp. She uses a walker to ambulate and has a wheelchair at home. [facility] reported she does not have any difficulty filling her prescriptions. She is aware of MD's request for higher of level of care transfer. I explained to her I was going to contact her son Ramone for additional information. She verbalized understanding. I called and spoke with Ramone. He stated he is not comfortable providing their home address for personal reasons. He reported he assist patient with ADLs at home and does not have any difficulty filling patient's prescriptions. He is aware of MD's request for higher of level care transfer and knows [employer] from insurance has contacted both [facility] and [facility]. He stated he prefers [facility], I informed [employer] Irene of this. Patient's pcp is . Patient does not have an Advance Directive. Nib Assembler and/or [employer] will follow up as needed. Signature: ROMEL Thompson Date: Mar 19, 2019
--- NOTE | 2019-03-19 16:41 | NUR ---
GOT A CALL FROM [facility] IS ACCEPTING THE PATIENT, THEY ARE JUST WAITING FOR A BED TO OPEN. WE ARE ALSO WAITING ON AUTHORIZATION FOR PT TRANSFER
--- NOTE | 2019-03-19 16:56 | NUR ---
JOSSELYN FROM [facility] CALLED. FELIZ FOR [facility] ALS TRANSPORT GIVEN (#[id number]). SET UP A WILL CALL TRANSPORTATION WITH [facility] (SPOKE WITH JUAN).
--- NOTE | 2019-03-19 19:26 | NUR ---
RECEIVED PATIENT FROM AM SHIFT NURSE. PATIENT LYING IN BED AWAKE AND ALERT. IV ACCESS ON RIGHT FOREARM 22 GAUGE PATENT, INTACT AND INFUSING WELL. . INITIAL ASSESSMENT DONE. TELE MONITORING IN PLACE. SKIN IS INTACT BUT NOTED WITH BRUISE ON LEFT ARM. MAN CATHETER IN PLACE, DRAINING WELL. ON 2LPM O2 VIA NASAL CANNULA. CALL LIGHT PLACED WITHIN PATIENT REACH. BED IN LOW. WILL CONTINUE TO MONITOR PATIENT.
[2019-03-19 20:10] VITALS: BP 149/53
--- NOTE | 2019-03-19 20:17 | NUR ---
RECEIVED PT ON 2L NC WITH SP02 97%. COARSE BREATH SOUNDS. PT IN NO RESPIRATORY DISTRESS. TX GIVEN ORDERED WITH NO ADVERSE REACTION. WILL CONTINUE TO MONITOR PT
--- NOTE | 2019-03-19 21:30 | NUR ---
ROUNDS DONE. VISIBLE CHEST RISE AND FALL NOTED. WILL CONTINUE TO MONITOR PATIENT.
--- NOTE | 2019-03-20 00:05 | NUR ---
VITAL SIGNS TAKEN. VISIBLE CHEST RISE AND FALL NOTED. WILL CONTINUE TO MONITOR PATIENT.
[2019-03-20 00:25] VITALS: BP 116/67
--- NOTE | 2019-03-20 01:15 | NUR ---
RECEIVED CALL FROM EDOUARD FROM LAB WITH PTT RESULT OF 49.7. HEPARIN PROTOCOL FOLLOWED WITH NO CHANGES IN RATE. CURRENT RATE IS 650 UNITS. CHARGE NURSE NOTIFIED AND NEXT PTT ORDERED FOR 0445. WILL CONTINUE TO MONITOR PATIENT.
[2019-03-20] MEDS: ALBUTEROL SULFATE/IPRATROPIU 3 ML SOL IH SCH ×3 (03:32→11:20)
[2019-03-20] MEDS: NITROGLYCERIN 0.4 MG TAB SL PRN ×2 (04:14→04:36)
--- NOTE | 2019-03-20 04:14 | NUR ---
PRN NITROGLYCERIN GIVEN FOR CHEST PAIN AT THIS TIME. WILL CONTINUE TO MONITOR PATIENT.
--- NOTE | 2019-03-20 04:19 | NUR ---
SECOND DOSE OF PRN NITROGLYCERIN GIVEN AT THIS TIME. PATIENT STATES SHE STILL FEELS CHEST PAIN. WILL CONTINUE TO MONITOR PATIENT.
[2019-03-20 04:20] VITALS: BP 122/47
--- NOTE | 2019-03-20 04:20 | NUR ---
PAGED DR. VAUGHN FOR PT C/O CHEST PAIN AND DISCOMFORT. WILL WAIT FOR CALL BACK.
--- NOTE | 2019-03-20 04:30 | NUR ---
SON CONTACTED PER PATIENT REQUEST AND WANTED SON TO COME SEE HER.
[2019-03-20] MEDS: LORazepam 2 MG/ML VIAL IVP PRN (04:36)
--- NOTE | 2019-03-20 05:09 | NUR ---
ALMITA, PATIENTS SON, AND CAME TO SEE PATIENT. PATIENT IS SLEEPING COMFORTABLY. VISIBLE CHEST RISE AND FALL NOTED. SON SAID TO CALL IF PATIENT WAKES UP AND IS STILL LOOKING FOR HIM.
[2019-03-20] MEDS ORDERED: FAMOTIDINE 20 MG TAB PO SCH (06:35)
[2019-03-20] MEDS ORDERED: FAMOTIDINE 20 MG/2 ML VIAL IV SCH (06:35)
[2019-03-20 06:37] LABS: BASOPHILS # (AUTO) 0.1 K/uL (0.00-0.22); BASOPHILS % (AUTO) 0.6 % (0.0-2.0); EOSINOPHILS # (AUTO) 0.4 K/uL (0-0.4); EOSINOPHILS % (AUTO) 4.7 % (0.0-4.0); HEMATOCRIT 27.4 % (36-48); HEMOGLOBIN 8.9 g/dL (12.0-16.0); LYMPHOCYTES # (AUTO) 1.7 K/uL (2.5-16.5); LYMPHOCYTES % (AUTO) 17.5 % (20.5-51.1); MEAN CORPUSCULAR HEMOGLOBIN 29 pg (27-31); MEAN CORPUSCULAR HGB CONC 33 g/dL (33-37); MEAN CORPUSCULAR VOLUME 88.6 fL (80-94); MONOCYTES # (AUTO) 0.6 K/uL (0.8-1.0); MONOCYTES % (AUTO) 6.7 % (1.7-9.3); NEUTROPHILS # (AUTO) 6.6 K/uL (1.8-7.7); NEUTROPHILS % (AUTO) 70.5 % (42.2-75.2); PLATELET COUNT (AUTO) 193 K/uL (140-450); RED CELL DISTRIBUTION WIDTH 15.9 % (11.6-13.7); WHITE BLOOD COUNT (AUTO) 9.4 K/uL (4.8-10.8)
[2019-03-20] MEDS: PANTOPRAZOLE 40 MG TABEC PO SCH (06:50)
[2019-03-20] MEDS: INSULIN LISPRO SLIDING SCALE 100 UNITS/ML VIAL SUBQ PRN ×2 (06:51→12:07)
--- NOTE | 2019-03-20 07:05 | NUR ---
ADOLPH FROM LAB CALLED WITH CRITICAL PTT OF 79.6. ENDORSED TO AM SHIFT NURSE TO FOLLOW HEPARIN PROTOCOL.
--- NOTE | 2019-03-20 07:25 | NUR ---
PATIENT IN STABLE CONDITION. CALL LIGHT WITHIN PATIENT REACH. ENDORSED TO AM SHIFT NURSE FOR CONTINUITY OF CARE.
[2019-03-20 07:29] LABS: ANION GAP 13.8 (8-16); CARBON DIOXIDE 27.3 mmol/L (21-32); CHLORIDE 104 mmol/L (98-107); CREATININE 2.1 mg/dL (0.6-1.3); GLUCOSE 229 mg/dL (74-106); POTASSIUM 5.1 mmol/L (3.5-5.1); SODIUM SERUM 140 mmol/L (136-145)
[2019-03-20] MEDS: hePARIN / DEXT 5% PREMIX 250 ML IV SCH (07:42)
--- NOTE | 2019-03-20 07:52 | NUR ---
RECEIVED BEDSIDE REPORT FROM PM RN PT APPEARS STABLE AND IN NO APPARENT DISTRESS ALL SAFETY MEASURES ARE IN PLACE WILL CONTINUE TI MONITOR.
[2019-03-20] MEDS: BLOOD GLUCOSE MONITORING 1 DEV DEV FS SCH ×2 (07:57→12:06)
[2019-03-20 08:15] LABS: UREA NITROGEN, BLOOD 67 mg/dL (7-18)
[2019-03-20 08:34] VITALS: BP 135/48
--- NOTE | 2019-03-20 09:05 | NUR ---
FREQUENT ROUNDING ON PT PT APPEARS STABLE AND IN NO APPARENT DISTRESS ALL SAFETY MEASURES ARE IN PLACE WILL CONTINUE TO MONITOR.
[2019-03-20] MEDS: NIFEdipine 60 MG TABER PO SCH (09:44)
[2019-03-20] MEDS: ASPIRIN 81 MG TAB.CHEW PO SCH (09:48)
[2019-03-20] MEDS: CIPROFLOXACIN 250 MG TAB PO SCH (09:48)
[2019-03-20] MEDS: ATORVASTATIN 20 MG TAB PO SCH (09:49)
[2019-03-20] MEDS: PREGABALIN 25 MG CAP PO SCH (09:49)
[2019-03-20] MEDS: CLOPIDOGREL 75 MG TAB PO SCH (09:50)
[2019-03-20] MEDS: METOPROLOL SUCCINATE 50 MG TABER PO SCH (09:51)
--- NOTE | 2019-03-20 11:30 | NUR ---
P.T. NOTES PATIENT CONTINUES TO REFUSE TO GET OUT OF BED AND PARTICIPATE WITH P.T. SERVICES. PLAN: D/C P.T. SERVICES NOW DUE TO HER CONSTANT REFUSAL AND BEING UNCOOPERATIVE WITH THE RECOMMENDED PLAN OF CARE. NURSE BARNETT MADE AWARE.
--- NOTE | 2019-03-20 11:34 | NUR ---
FREQUENT ROUNDING ON PT PT APPEARS STABLE AND IN NO APPARENT DISTRESS. ALL SAFETY MEASURES ARE IN PLACE, WILL CONTINUE TO MONITOR.
[2019-03-20 12:53] VITALS: BP 146/67
--- NOTE | 2019-03-20 14:10 | NUR ---
PT LEFT VIA GURNEY WITH [facility] TRANSPORTATION TO [facility] FOR [facility]ISTORY PROFESSOR TO RECEIVED HIGHER LEVEL OF CARE. PT APPEARS STABLE AND IN NO APPARENT DISTRESS. ALL SAFETY MEASURES ARE IN PLACE. PT LEFT WITH MAN CATH IN PLACE AND RIGHT FOREARM 22G IV. UPDATED PT FAMILY ALMITA GOODEN ON PLAN OF CARE.
== END 2019-03-20 14:15 | disposition short-term general hospital (02) | DRG 682 ==
LOC: MED 01:28 → MIC 04:37 → MTU 10:55
PROVIDERS: ADMIT Internal Medicine Pulmonary Disease; ATTEND Internal Medicine Pulmonary Disease
PROC: 5A09357 Assistance with Respiratory Ventilation, Less than 24 Consecutive Hours, Continuous Positive Airway Pressure (ICD-10-PCS; principal; 2019-03-16)
DX: N17.9 Acute kidney failure, unspecified (principal); I50.43 Acute on chronic combined systolic (congestive) and diastolic (congestive) heart failure; J96.01 Acute respiratory failure with hypoxia; I13.0 Hypertensive heart and chronic kidney disease with heart failure and stage 1 through stage 4 chronic kidney disease, or unspecified chronic kidney disease; E66.9 Obesity, unspecified; E78.5 Hyperlipidemia, unspecified; I50.9 Heart failure, unspecified; J44.9 Chronic obstructive pulmonary disease, unspecified; N18.3 Chronic kidney disease, stage 3 (moderate); E11.22 Type 2 diabetes mellitus with diabetic chronic kidney disease; D64.9 Anemia, unspecified; F41.9 Anxiety disorder, unspecified; T50.2X5A Adverse effect of carbonic-anhydrase inhibitors, benzothiadiazides and other diuretics, initial encounter; Z68.38 Body mass index [BMI] 38.0-38.9, adult; Z88.5 Allergy status to narcotic agent; Z88.0 Allergy status to penicillin; Z91.013 Allergy to seafood; Z90.49 Acquired absence of other specified parts of digestive tract; Y92.89 Other specified places as the place of occurrence of the external cause
CPT/HCPCS: 36415; 36600; 51702; 71045; 80048; 80053; 80305; 81001; 82803; 82948; 83605; 83735; 83880; 84484; 85025; 85730; 87040; 87081; 87086; 93005; 94640; 94660; 96374; 96375; 97116; 97161-GP; 97530; 99291; J1644; J1815; J1940; J2060; J2270; J2405; J2930; J7613; J7620; J7644; Q0092